=== PATIENT | female | born 1945 | race Caucasian/White ===

== ENCOUNTER → 2019-02-21 | Outpatient (CLI) | payer MEDICARE, OTHER ==
[~2019-02-21] MED LIST: ASPI-650 PO; ATOR10TA9 PO; BENA1TAB11 PO; BENA5TAB3 PO; CELE400C PO; DIAZ10TA PO; DICL25TA PO; OXYC-307 PO; OXYC20TA42 PO; PARO10TA3 PO
== END | disposition home or self-care (01) ==
LOC: CFH 14:11
PROVIDERS: ATTEND Physician Assistant Surgical
DX: M19.071 Primary osteoarthritis, right ankle and foot (principal)

== ENCOUNTER → 2019-04-05 | Outpatient (CLI) | payer MEDICARE, OTHER ==
[~2019-04-05] MED LIST changes: +ALPR0.254 PO; +AMLO-150 PO; +AMOX-291 PO; +ASCO500T8 PO; +CYAN1TAB29 PO
[2019-04-05 14:42] LABS: ALANINE AMINOTRANSFERASE 22 U/L (12-78); ALBUMIN 3.9 g/dL (3.4-5.0); ANION GAP 5 mmol/L (5-15); CALCIUM 9.3 mg/dL (8.5-10.1); CHLORIDE 108 mmol/L (98-107)
[2019-04-05 14:44] LABS: ALKALINE PHOSPHATASE 61 U/L (45-117); BILIRUBIN,TOTAL 0.4 mg/dL (0.2-1.0); TOTAL PROTEIN 7.2 g/dL (6.4-8.2)
== END | disposition home or self-care (01) ==
LOC: STAR 13:27
PROVIDERS: ATTEND Orthopaedic Surgery
DX: Z01.818 Encounter for other preprocedural examination (principal); M19.071 Primary osteoarthritis, right ankle and foot; M19.049 Primary osteoarthritis, unspecified hand; M17.12 Unilateral primary osteoarthritis, left knee; I10 Essential (primary) hypertension; Z88.8 Allergy status to other drugs, medicaments and biological substances; Z79.899 Other long term (current) drug therapy; Z87.891 Personal history of nicotine dependence; Z96.651 Presence of right artificial knee joint
CPT/HCPCS: 36415; 80053; 93005

== ENCOUNTER 2019-04-28 09:49 | Day surgery (SDC) | payer MEDICARE, OTHER ==
[~2019-04-28] VITALS: Ht 160 cm; Wt 59.2 kg
[~2019-04-28 09:49] MED LIST changes: +BUPIVACAINE/PF 0.5% ONE; +LIDOCAINE 1%, 20ML ONE
[2019-04-28] MEDS ORDERED: LACTATED RINGERS 1,000 ML IV SCH (10:23)
[2019-04-28 10:50] VITALS: BP 159/91
[2019-04-28] MEDS ORDERED: MIDAZOLAM 1 MG/ML, 2ML ONE (11:12)
[2019-04-28] MEDS ORDERED: FENTANYL PF 100 MCG/2ML ONE ×2 (11:12→14:18)
[2019-04-28] MEDS ORDERED: EPINEPHRINE 1 MG/ML, 1ML ONE (11:36)
[2019-04-28] MEDS ORDERED: BUPIVACAINE/PF 0.25% ONE (11:36)
[2019-04-28] MEDS ORDERED: hydrALAzine 20 MG/ML, 1ML ONE (11:56)
[2019-04-28] MEDS ORDERED: CEFAZOLIN 1,000 MG ONE (11:56)
[2019-04-28] MEDS ORDERED: ONDANSETRON 2MG/ML, 2ML ONE (11:56)
[2019-04-28] MEDS ORDERED: PHENYLEPHRINE 10 MG/ML ONE (11:56)
[2019-04-28] MEDS ORDERED: ROCURONIUM 10 MG/ML,10ML ONE (11:56)
[2019-04-28] MEDS ORDERED: PROPOFOL 10 MG/ML, 20ML ONE (11:56)
[2019-04-28] MEDS ORDERED: HALOPERIDOL 5 MG/ML IV PRN (12:30)
[2019-04-28] MEDS ORDERED: HYDROcodone/APAP 7.5-325MG/15ML UDC PO PRN (12:30)
[2019-04-28] MEDS ORDERED: MEPERIDINE/PF 25MG/0.5ML IVPush PRN (12:30)
[2019-04-28] MEDS ORDERED: PROMETHAZINE 25 MG/ML, 1ML IV PRN (12:30)
[2019-04-28] MEDS ORDERED: HYDROmorphone 2 MG/ML, 1ML IVPush PRN (12:30)
[2019-04-28] MEDS ORDERED: hydrALAzine 20 MG/ML, 1ML IV PRN (12:30)
[2019-04-28] MEDS ORDERED: FENTANYL PF 100 MCG/2ML IV PRN (12:30)
[2019-04-28] MEDS ORDERED: LORazepam 2 MG/ML, 1ML IVPush PRN (12:30)
[2019-04-28] MEDS ORDERED: HYDROcodone/APAP 7.5-325MG/15ML UDC ONE (14:18)
== END 2019-04-28 19:00 | disposition home or self-care (01) ==
LOC: OUT 09:49
PROVIDERS: ATTEND Orthopaedic Surgery
DX: M19.071 Primary osteoarthritis, right ankle and foot (principal); M77.41 Metatarsalgia, right foot; M25.774 Osteophyte, right foot; I10 Essential (primary) hypertension; F41.9 Anxiety disorder, unspecified; F32.9 Major depressive disorder, single episode, unspecified; Z88.5 Allergy status to narcotic agent; Z88.8 Allergy status to other drugs, medicaments and biological substances; Z87.891 Personal history of nicotine dependence
CPT/HCPCS: 28308; 28735; 64445; 64447; 73620; 76000; C1713; C1762; J0171; J0360; J0690; J2250; J2370; J2405; J2704; J3010; J3490; J7120

== ENCOUNTER 2019-11-25 16:02 | Inpatient (IN) | payer MEDICARE, OTHER ==
[~2019-11-25] VITALS: Ht 158.8 cm; Wt 65.4 kg
[~2019-11-25 16:02] MED LIST changes: -BUPIVACAINE/PF 0.5% ONE; -LIDOCAINE 1%, 20ML ONE
[2019-11-25] MEDS ORDERED: ASPIRIN 81 MG TABLET CHEW ONE (16:56)
[2019-11-25] MEDS ORDERED: ASPIRIN 81 MG TABLET CHEW PO ONE (17:00)
[2019-11-25] MEDS ORDERED: SODIUM CHLORIDE FLUSH 10ML SYR IVF ONE (17:00)
[2019-11-25] MEDS ORDERED: FILTER 0.22 MICRON IV ONE (17:00)
[2019-11-25] MEDS ORDERED: AMIODARONE 900 MG in DEXTROSE 5% 482 ML IV PRN (17:00)
[2019-11-25] MEDS ORDERED: AMIODARONE 150 MG in DEXTROSE 5% 100 ML IV ONE (17:00)
[2019-11-25 17:11] LABS: BASOPHILS # (AUTO) 0.05 x10^3/uL (0-0.1); BASOPHILS % (AUTO) 1 % (0-1); EOSINOPHILS # (AUTO) 0.17 x10^3/uL (0-0.4); EOSINOPHILS % (AUTO) 2 % (1-7); LYMPHOCYTES # (AUTO) 3.01 x10^3/uL (1-3.4); LYMPHOCYTES % (AUTO) 35 % (22-44); MD NO; MEAN CORPUSCULAR HEMOGLOBIN 36.2 pg (27.0-34.8); MEAN CORPUSCULAR HGB CONC 33.4 g/dL (32.4-35.8); MEAN CORPUSCULAR VOLUME 108.2 fL (80-100); MEAN PLATELET VOLUME 8.7 fL (7.4-10.4); MONOCYTES % (AUTO) 9 % (2-9); NEUTROPHILS # (AUTO) 4.53 x10^3/uL (1.8-6.8); NEUTROPHILS % (AUTO) 53 % (42-75); PLATELET COUNT 278 x10^3/uL (130-400); RED BLOOD COUNT 4.29 x10^6/uL (3.82-5.3); RED CELL DISTRIBUTION WIDTH 12.5 % (9.6-15.2)
[2019-11-25 17:21] LABS: INTERNATIONAL NORMALIZED RATIO 0.96 (0.93-1.1); PROTHROMBIN TIME 10.1 Seconds (9.6-11.5)
[2019-11-25 17:23] LABS: ALBUMIN 3.8 g/dL (3.4-5.0); ANION GAP 7 mmol/L (5-15); CALCIUM 9.1 mg/dL (8.5-10.1); CHLORIDE 105 mmol/L (98-107)
[2019-11-25 17:29] LABS: ALANINE AMINOTRANSFERASE 23 U/L (12-78); ALKALINE PHOSPHATASE 67 U/L (45-117); BILIRUBIN,TOTAL 0.7 mg/dL (0.2-1.0); TOTAL PROTEIN 7.7 g/dL (6.4-8.2); TROPONIN I < 0.015 ng/mL (0.000-0.045)
[2019-11-25] MEDS ORDERED: METOPROLOL TARTRATE 50 MG TABLET PO ONE (18:00)
[2019-11-25] MEDS: METOPROLOL 1 MG/ML, 5ML IVPush ONE ×2 (18:00→19:07)
[2019-11-25] MEDS ORDERED: METOPROLOL TARTRATE 25 MG TABLET ONE (19:04)
[2019-11-25] MEDS ORDERED: METOPROLOL 1 MG/ML, 5ML ONE (19:04)
--- NOTE | 2019-11-25 19:11 | NUR ---
PROVIDER KIRA AT BEDSIDE, AWARE OF CURRENT VS. HOLD IV LOPRESSOR AT THIS TIME
--- NOTE | 2019-11-25 19:11 | NUR ---
ASSUMED CARE OF PT. REPORT RECEIVED FROM RN. RN MEDICATED PER JAN. PT SITTING IN BED IN NO APPARENT DISTRESS. MONITOR IN PLACE.
[2019-11-25 19:55] VITALS: BP 136/84
[2019-11-25 19:56] VITALS: BP 136/84
[2019-11-25] MEDS ORDERED: ACETAMINOPHEN 650 MG/20.3 ML UDC PO PRN (20:00)
[2019-11-25] MEDS ORDERED: Enoxaparin 1 mg/kg protocol SQ SCH (20:00)
[2019-11-25] MEDS ORDERED: ONDANSETRON 2MG/ML, 2ML IV PRN (20:00)
[2019-11-25 20:36] LABS: TROPONIN I < 0.015 ng/mL (0.000-0.045)
[2019-11-25 22:24] VITALS: BP 130/80
[2019-11-25] MEDS: ENOXAPARIN 60 MG/0.6 ML SQ SCH (22:30)
[2019-11-25] MEDS: NICOTINE 14MG/24 HR PATCH.TD24 TD SCH (22:30)
[2019-11-26] VITALS (9 sets, daily range): BP systolic 95–130; BP diastolic 61–83
[2019-11-26 02:13] LABS: BASOPHILS # (AUTO) 0.03 x10^3/uL (0-0.1); BASOPHILS % (AUTO) 0 % (0-1); EOSINOPHILS # (AUTO) 0.23 x10^3/uL (0-0.4); EOSINOPHILS % (AUTO) 3 % (1-7); LYMPHOCYTES # (AUTO) 2.69 x10^3/uL (1-3.4); LYMPHOCYTES % (AUTO) 39 % (22-44); MD NO; MEAN CORPUSCULAR HEMOGLOBIN 36.8 pg (27.0-34.8); MEAN CORPUSCULAR VOLUME 108.3 fL (80-100); MEAN PLATELET VOLUME 8.4 fL (7.4-10.4); MONOCYTES # (AUTO) 0.69 x10^3/uL (0.2-0.8); MONOCYTES % (AUTO) 10 % (2-9); NEUTROPHILS # (AUTO) 3.33 x10^3/uL (1.8-6.8); NEUTROPHILS % (AUTO) 48 % (42-75); PLATELET COUNT 248 x10^3/uL (130-400); RED BLOOD COUNT 4.05 x10^6/uL (3.82-5.3); RED CELL DISTRIBUTION WIDTH 12.6 % (9.6-15.2)
[2019-11-26 02:28] LABS: TROPONIN I < 0.015 ng/mL (0.000-0.045)
[2019-11-26] MEDS ORDERED: METOPROLOL TARTRATE 50 MG TABLET PO SCH (06:00)
[2019-11-26 07:58] LABS: ANION GAP 9 mmol/L (5-15); CALCIUM 8.7 mg/dL (8.5-10.1); CHLORIDE 107 mmol/L (98-107); CREATININE 0.64 mg/dL (0.55-1.02); TRIGLYCERIDES 204 mg/dL (50-200)
[2019-11-26 07:59] LABS: CHOLESTEROL, TOTAL 195 mg/dL (140-239); VLDL CHOLESTEROL 41 mg/dL (0-25)
[2019-11-26 08:00] LABS: CHOL/HDL RATIO 2.4; HDL CHOL % 42 % (28-40); HDL CHOLESTEROL (DIRECT) 82 mg/dL (40-60); LDL CHOLESTEROL,CALCULATED 72 mg/dL (54-169); LDL/HDL RATIO 0.9 (0.5-3.0)
[2019-11-26] MEDS: CYANOCOBALAMIN 1,000 MCG TABLET PO SCH (09:47)
[2019-11-26] MEDS: FOLIC ACID 1 MG TABLET PO SCH (09:47)
[2019-11-26] MEDS: ENOXAPARIN 60 MG/0.6 ML SQ SCH (09:47)
[2019-11-26] MEDS: PAROXETINE 10 MG TABLET PO SCH (09:47)
[2019-11-26] MEDS: ATORVASTATIN 10 MG TABLET PO SCH (09:47)
[2019-11-26] MEDS: METOPROLOL TARTRATE 25 MG TABLET PO SCH (15:40)
[2019-11-26] MEDS ORDERED: OMNIPAQUE 350 MG/ML, 100ML BOTTLE ONE (17:03)
[2019-11-26] MEDS: NICOTINE 14MG/24 HR PATCH.TD24 TD SCH (20:25)
[2019-11-26] MEDS ORDERED: FLU VACC QS2019-20 36MOS UP/PF 0.5 ML IM-VACC ONE (21:00)
[2019-11-27] VITALS (8 sets, daily range): BP systolic 121–155; BP diastolic 65–86
[2019-11-27] MEDS: METOPROLOL TARTRATE 25 MG TABLET PO SCH ×2 (05:27→16:33)
[2019-11-27] MEDS: CYANOCOBALAMIN 1,000 MCG TABLET PO SCH (08:24)
[2019-11-27] MEDS: PAROXETINE 10 MG TABLET PO SCH (08:24)
[2019-11-27] MEDS: ATORVASTATIN 10 MG TABLET PO SCH (08:24)
[2019-11-27] MEDS: FOLIC ACID 1 MG TABLET PO SCH (08:25)
[2019-11-27] MEDS ORDERED: REGADENOSON 0.4 MG/5 ML SYRINGE ONE (10:23)
[2019-11-27] MEDS: NICOTINE 14MG/24 HR PATCH.TD24 TD SCH (20:30)
[2019-11-28 02:16] VITALS: BP 145/84
[2019-11-28] MEDS: METOPROLOL TARTRATE 25 MG TABLET PO SCH (05:45)
[2019-11-28 07:57] VITALS: BP 133/77
[2019-11-28] MEDS: CYANOCOBALAMIN 1,000 MCG TABLET PO SCH (09:03)
[2019-11-28] MEDS: FOLIC ACID 1 MG TABLET PO SCH (09:03)
[2019-11-28] MEDS: PAROXETINE 10 MG TABLET PO SCH (09:03)
[2019-11-28 13:30] VITALS: BP 153/78
[2019-11-28 18:10] VITALS: BP 150/82
[2019-11-28] MEDS: METOPROLOL SUCCINATE 25 MG TAB.ER.24H PO SCH (18:11)
[2019-11-28] MEDS: LISINOPRIL 5 MG TABLET PO SCH (18:11)
[2019-11-28] MEDS: NICOTINE 14MG/24 HR PATCH.TD24 TD SCH (21:47)
[2019-11-28] MEDS: ATORVASTATIN 20 MG TABLET PO SCH (21:47)
[2019-11-29 03:09] VITALS: BP 162/83
[2019-11-29] MEDS: METOPROLOL SUCCINATE 25 MG TAB.ER.24H PO SCH (06:36)
[2019-11-29 07:05] VITALS: BP 128/80
[2019-11-29] MEDS: PAROXETINE 10 MG TABLET PO SCH (07:59)
[2019-11-29] MEDS: LISINOPRIL 5 MG TABLET PO SCH (07:59)
[2019-11-29] MEDS: FOLIC ACID 1 MG TABLET PO SCH (07:59)
[2019-11-29] MEDS: CYANOCOBALAMIN 1,000 MCG TABLET PO SCH (07:59)
[2019-11-29 09:16] LABS: BASOPHILS # (AUTO) 0.03 x10^3/uL (0-0.1); BASOPHILS % (AUTO) 0 % (0-1); EOSINOPHILS % (AUTO) 2 % (1-7); LYMPHOCYTES # (AUTO) 1.76 x10^3/uL (1-3.4); LYMPHOCYTES % (AUTO) 21 % (22-44); MD NO; MEAN CORPUSCULAR HEMOGLOBIN 35.9 pg (27.0-34.8); MEAN CORPUSCULAR HGB CONC 33.5 g/dL (32.4-35.8); MEAN CORPUSCULAR VOLUME 107.1 fL (80-100); MEAN PLATELET VOLUME 8.7 fL (7.4-10.4); MONOCYTES # (AUTO) 0.87 x10^3/uL (0.2-0.8); MONOCYTES % (AUTO) 10 % (2-9); NEUTROPHILS # (AUTO) 5.47 x10^3/uL (1.8-6.8); NEUTROPHILS % (AUTO) 66 % (42-75); PLATELET COUNT 230 x10^3/uL (130-400); RED BLOOD COUNT 4.18 x10^6/uL (3.82-5.3); RED CELL DISTRIBUTION WIDTH 12.7 % (9.6-15.2)
[2019-11-29 09:27] LABS: ALANINE AMINOTRANSFERASE 27 U/L (12-78); ALBUMIN 3.7 g/dL (3.4-5.0); ANION GAP 6 mmol/L (5-15); CALCIUM 8.7 mg/dL (8.5-10.1); CHLORIDE 111 mmol/L (98-107)
[2019-11-29 09:30] LABS: ALKALINE PHOSPHATASE 69 U/L (45-117); BILIRUBIN,TOTAL 0.6 mg/dL (0.2-1.0); CREATININE 0.54 mg/dL (0.55-1.02); TOTAL PROTEIN 7.4 g/dL (6.4-8.2)
[2019-11-29 12:32] VITALS: BP 160/87
[2019-11-29] MEDS ORDERED: MAGNESIUM HYDROXIDE 8%, 30ML UDC PO PRN (20:00)
[2019-11-29 20:48] VITALS: BP 130/71
[2019-11-29] MEDS: NICOTINE 14MG/24 HR PATCH.TD24 TD SCH (21:37)
[2019-11-29] MEDS: ATORVASTATIN 20 MG TABLET PO SCH (21:38)
[2019-11-30 03:40] VITALS: BP 150/94
[2019-11-30 05:12] LABS: ALANINE AMINOTRANSFERASE 22 U/L (12-78); ALBUMIN 3.1 g/dL (3.4-5.0); ANION GAP 8 mmol/L (5-15); CALCIUM 8.2 mg/dL (8.5-10.1); CHLORIDE 111 mmol/L (98-107); CREATININE 0.58 mg/dL (0.55-1.02)
[2019-11-30 05:14] LABS: MEAN CORPUSCULAR HEMOGLOBIN 35.5 pg (27.0-34.8); MEAN CORPUSCULAR HGB CONC 33.1 g/dL (32.4-35.8); MEAN CORPUSCULAR VOLUME 107.2 fL (80-100); MEAN PLATELET VOLUME 8.7 fL (7.4-10.4); PLATELET COUNT 198 x10^3/uL (130-400); RED BLOOD COUNT 3.71 x10^6/uL (3.82-5.3); RED CELL DISTRIBUTION WIDTH 12.1 % (9.6-15.2)
[2019-11-30 05:15] LABS: ALKALINE PHOSPHATASE 59 U/L (45-117); BILIRUBIN,TOTAL 0.5 mg/dL (0.2-1.0); TOTAL PROTEIN 6.3 g/dL (6.4-8.2)
[2019-11-30 05:59] LABS: BASOPHILS # (AUTO) 0.04 x10^3/uL (0-0.1); BASOPHILS % (AUTO) 1 % (0-1); EOSINOPHILS # (AUTO) 0.25 x10^3/uL (0-0.4); EOSINOPHILS % (AUTO) 4 % (1-7); LYMPHOCYTES # (AUTO) 1.91 x10^3/uL (1-3.4); LYMPHOCYTES % (AUTO) 30 % (22-44); MD SCAN; MONOCYTES # (AUTO) 0.89 x10^3/uL (0.2-0.8); MONOCYTES % (AUTO) 14 % (2-9); NEUTROPHILS # (AUTO) 3.26 x10^3/uL (1.8-6.8); NEUTROPHILS % (AUTO) 51 % (42-75)
[2019-11-30] MEDS: METOPROLOL SUCCINATE 25 MG TAB.ER.24H PO SCH (06:20)
[2019-11-30 06:32] VITALS: BP 145/82
[2019-11-30 07:02] VITALS: BP 149/83
[2019-11-30] MEDS: PAROXETINE 10 MG TABLET PO SCH (09:32)
[2019-11-30] MEDS: CYANOCOBALAMIN 1,000 MCG TABLET PO SCH (09:32)
[2019-11-30] MEDS: FOLIC ACID 1 MG TABLET PO SCH (09:32)
[2019-11-30] MEDS: LISINOPRIL 10 MG TABLET PO SCH (09:32)
[2019-11-30] MEDS ORDERED: PROTAMINE SULFATE 10 MG/ML, 5ML ONE (10:14)
[2019-11-30] MEDS ORDERED: HEPARIN 1,000 UNITS/ML, 10ML ONE ×2 (10:15)
[2019-11-30] MEDS ORDERED: THROMBIN (RECOMBINANT) 5,000 UNIT VIAL TP ONE ×2 (10:15)
[2019-11-30] MEDS ORDERED: D5%-0.45% NACL 1,000 ML IV SCH (11:00)
[2019-11-30 12:22] VITALS: BP 169/93
[2019-11-30 12:29] VITALS: BP 168/84
[2019-11-30 12:41] LABS: ALBUMIN 3.3 g/dL (3.4-5.0); ANION GAP 6 mmol/L (5-15); CALCIUM 8.1 mg/dL (8.5-10.1); CHLORIDE 111 mmol/L (98-107); CREATININE 0.44 mg/dL (0.55-1.02)
[2019-11-30] MEDS ORDERED: FENTANYL PF 250 MCG/5ML ONE (15:28)
[2019-11-30] MEDS ORDERED: PROPOFOL 50 ML ONE (15:28)
[2019-11-30] MEDS ORDERED: GLYCOPYRROLATE 0.2MG/1ML, 5ML ONE (16:02)
[2019-11-30] MEDS ORDERED: ONDANSETRON 2MG/ML, 2ML ONE (16:02)
[2019-11-30] MEDS ORDERED: PROPOFOL 10 MG/ML, 20ML ONE (16:02)
[2019-11-30] MEDS ORDERED: NEOSTIGMINE 1 MG/ML, 10ML ONE (16:02)
[2019-11-30] MEDS ORDERED: CEFAZOLIN 1,000 MG ONE (16:02)
[2019-11-30] MEDS ORDERED: ROCURONIUM 10MG/ML,5ML ONE (16:02)
[2019-11-30] MEDS ORDERED: DEXAMETHASONE 4 MG/ML, 1ML ONE (16:02)
[2019-11-30] MEDS ORDERED: SUCCINYLCHOLINE 20 MG/ML, 10ML ONE (16:02)
[2019-11-30] MEDS ORDERED: hydrALAzine 20 MG/ML, 1ML ONE (16:50)
[2019-11-30] MEDS ORDERED: OXYcodone 5 MG/5 ML ORAL.SOL UDC ONE (18:12)
[2019-11-30] MEDS ORDERED: HYDROcodone/APAP 7.5-325MG/15ML UDC PO PRN (18:30)
[2019-11-30] MEDS ORDERED: FENTANYL PF 100 MCG/2ML IV PRN (18:30)
[2019-11-30] MEDS ORDERED: OXYcodone 5 MG/5 ML ORAL.SOL UDC PO PRN (18:30)
[2019-11-30] MEDS ORDERED: morphine SULFATE 10 MG/ML, 1ML IV PRN (19:00)
[2019-11-30] MEDS ORDERED: HYDROcodone/APAP 5/325 TABLET PO PRN (19:00)
[2019-11-30] MEDS ORDERED: ONDANSETRON 2MG/ML, 2ML IV PRN (19:00)
[2019-11-30 19:08] VITALS: BP 124/71
[2019-11-30] MEDS: POTASSIUM CHLORIDE 20 MEQ in D5%-0.45% NACL 1,000 ML IV SCH (19:29)
[2019-11-30] MEDS ORDERED: DIPHENHYDRAMINE 50 MG/ML, 1ML IVPush ONE (19:30)
[2019-11-30] MEDS ORDERED: methylPREDNISolone SOD SUCC 125 MG/2 ML IV ONE (19:30)
[2019-11-30] MEDS: SODIUM CHLORIDE FLUSH 10ML SYR IVF SCH (20:00)
[2019-11-30] MEDS: ATORVASTATIN 20 MG TABLET PO SCH (22:25)
[2019-12-01 00:46] VITALS: BP 115/63
[2019-12-01] MEDS: NICOTINE 14MG/24 HR PATCH.TD24 TD SCH (06:20)
[2019-12-01] MEDS: METOPROLOL SUCCINATE 25 MG TAB.ER.24H PO SCH (06:20)
[2019-12-01 06:34] LABS: MEAN CORPUSCULAR HEMOGLOBIN 35.2 pg (27.0-34.8); MEAN CORPUSCULAR HGB CONC 33.1 g/dL (32.4-35.8); MEAN CORPUSCULAR VOLUME 106.3 fL (80-100); PLATELET COUNT 204 x10^3/uL (130-400); RED BLOOD COUNT 3.56 x10^6/uL (3.82-5.3); RED CELL DISTRIBUTION WIDTH 12.5 % (9.6-15.2)
[2019-12-01 06:41] LABS: ANION GAP 7 mmol/L (5-15); CALCIUM 8.4 mg/dL (8.5-10.1); CHLORIDE 109 mmol/L (98-107)
[2019-12-01 06:59] LABS: BASOPHILS # (AUTO) 0.03 x10^3/uL (0-0.1); BASOPHILS % (AUTO) 0 % (0-1); EOSINOPHILS % (AUTO) 0 % (1-7); LYMPHOCYTES # (AUTO) 0.59 x10^3/uL (1-3.4); LYMPHOCYTES % (AUTO) 5 % (22-44); MD SCAN; MONOCYTES # (AUTO) 0.47 x10^3/uL (0.2-0.8); MONOCYTES % (AUTO) 4 % (2-9); NEUTROPHILS # (AUTO) 11.17 x10^3/uL (1.8-6.8); NEUTROPHILS % (AUTO) 91 % (42-75)
[2019-12-01] MEDS: POTASSIUM CHLORIDE 20 MEQ in D5%-0.45% NACL 1,000 ML IV SCH (08:28)
[2019-12-01 08:45] VITALS: BP 127/69
[2019-12-01] MEDS: PAROXETINE 10 MG TABLET PO SCH (08:47)
[2019-12-01] MEDS: FOLIC ACID 1 MG TABLET PO SCH (08:47)
[2019-12-01] MEDS: SODIUM CHLORIDE FLUSH 10ML SYR IVF SCH (08:47)
[2019-12-01] MEDS: CYANOCOBALAMIN 1,000 MCG TABLET PO SCH (08:47)
[2019-12-01] MEDS: LISINOPRIL 10 MG TABLET PO SCH (08:47)
[2019-12-01] MEDS ORDERED: FOLI-17 PO (10:53)
[2019-12-01] MEDS ORDERED: LISI-167 PO (10:53)
[2019-12-01] MEDS ORDERED: METO25TA91 PO (10:53)
== END 2019-12-01 12:00 | disposition home or self-care (01) | DRG 269 ==
LOC: ED 18:14 → EDIP 18:37 → 5SO 19:49 → CCU 11-30 17:34 → 5SO 11-30 18:41 → DCLOUNGE 12-01 11:32
PROVIDERS: ADMIT Family Medicine; ATTEND Hospitalist
PROC: 04V03DZ Restriction of Abdominal Aorta with Intraluminal Device, Percutaneous Approach (ICD-10-PCS; principal; 2019-11-25)
PROC: 03HY32Z Insertion of Monitoring Device into Upper Artery, Percutaneous Approach (ICD-10-PCS; 2019-11-25)
PROC: B4101ZZ Fluoroscopy of Abdominal Aorta using Low Osmolar Contrast (ICD-10-PCS; 2019-11-25)
DX: I71.4 Abdominal aortic aneurysm, without rupture (principal); I50.30 Unspecified diastolic (congestive) heart failure; D68.69 Other thrombophilia; I10 Essential (primary) hypertension; E78.5 Hyperlipidemia, unspecified; D75.89 Other specified diseases of blood and blood-forming organs; E78.00 Pure hypercholesterolemia, unspecified; F17.210 Nicotine dependence, cigarettes, uncomplicated; F41.9 Anxiety disorder, unspecified; I11.0 Hypertensive heart disease with heart failure; R55 Syncope and collapse; R00.0 Tachycardia, unspecified; Z96.651 Presence of right artificial knee joint; W18.30XA Fall on same level, unspecified, initial encounter; Y93.89 Activity, other specified; Y92.89 Other specified places as the place of occurrence of the external cause; Y99.8 Other external cause status; Z90.49 Acquired absence of other specified parts of digestive tract; Z82.3 Family history of stroke; Z83.3 Family history of diabetes mellitus
CPT/HCPCS: 34701; 34812; 36415; 71045; 71275; 74174; 78452; 80048; 80053; 80061; 82040; 82607; 83735; 83880; 84100; 84484; 85025; 85347; 85610; 85730; 90686; 93005; 93017; 93306; 93880; 96365; 96368; G0378; J0690; J1100; J1644; J1650; J2405; J2704; J2710; J2720; J2785; J3010; J3480; Q9967; A9502; C1768; C1769; C1894; J0282; J0330; J0360; J1200; J2930